=== PATIENT | male | born 1960 | race African-American/Black ===

== ENCOUNTER 2016-10-19 14:09 | Emergency (ER) | payer MEDICAID ==
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
[2016-10-19 14:40] LABS: ADD MORPH? NO; ADD SCAN? YES; FRAGMENT RBC FLAG 0 (0-99); HEMATOCRIT 46.7 % (40.0-51.0); HEMOGLOBIN 15.6 g/dL (13.7-17.5); LEFT SHIFT FLG 0 (0-99); LIPEMIA HEMOLYSIS FLAG 80 (0-99); MEAN CELL HEMOGLOBIN 28.6 pg (27.9-34.1); MEAN CELL HEMOGLOBIN CONCENTR. 33.4 g/dL (32.4-36.7); MEAN CELL VOLUME 85.5 fL (81.5-99.8); MEAN PLATELET VOLUME 10.8 fL (8.7-11.7); PLATELET CLUMPS FLAG 0 (0-99); PLATELET COUNT 235 10^3/uL (150-400); RED BLOOD CELL COUNT 5.46 10^6/uL (4.40-6.38); RED CELL DISTRIBUTION WIDTH 15.9 % (11.5-15.2)
[2016-10-19 14:49] LABS: ATYPICAL LYMPHOCYTE FLAG 150 (0-99)
[2016-10-19 14:50] LABS: ANION GAP 12 mEq/L (8-16); CALCIUM 9.2 mg/dL (8.5-10.4); CARBON DIOXIDE 23 mEq/l (22-31); CHLORIDE 106 mEq/L (97-110); CREATININE 0.7 mg/dL (0.7-1.3); ETHANOL SERUM < 10 mg/dL (0-10); GLOMERULAR FILTRATION RATE > 60; GLUCOSE 87 mg/dL (70-100); POTASSIUM 4.2 mEq/L (3.5-5.2); SODIUM 141 mEq/L (134-144)
[2016-10-19 15:10] VITALS: RESP 16; TEMP 97.9; O2SAT 96
[2016-10-19 15:11] LABS: ADD DIFF? YES; SCAN POSITIVE
[2016-10-19 15:19] LABS: GIANT PLATELETS PRESENT; PLATELET ESTIMATE ADEQUATE (ADEQ)
[2016-10-19] MEDS ORDERED: OLANZapine 5 MG TAB PO ONE (16:53)
[2016-10-19] MEDS ORDERED: OLANZapine DISINTEGR 5 MG TAB ONE (16:55)
[2016-10-19] MEDS ORDERED: HYDROCHLOROTHIAZIDE 25 MG TAB PO ONE (17:00)
[2016-10-19] MEDS ORDERED: risperiDONE 2 MG TAB PO SCH (21:00)
[2016-10-19] MEDS ORDERED: BENZTROPINE MESYLATE 1 MG TAB PO SCH (21:00)
[2016-10-19] MEDS ORDERED: QUEtiapine FUMARATE 300 MG TAB PO SCH (21:00)
[2016-10-19] MEDS ORDERED: risperiDONE 1 MG TAB PO SCH (21:00)
[2016-10-19] MEDS ORDERED: QUEtiapine FUMARATE 200 MG TAB PO SCH (21:00)
[2016-10-20 01:30] VITALS: PULSE 80
[2016-10-20 01:44] VITALS: BP 108/73
== END 2016-10-20 01:45 ==
LOC: EDUNIT#
DX: F22 Delusional disorders (principal); I10 Essential (primary) hypertension; F17.210 Nicotine dependence, cigarettes, uncomplicated; M79.674 Pain in right toe(s)
CPT/HCPCS: 80305; G0480

== ENCOUNTER 2016-10-31 15:33 | Emergency (ER) | payer MEDICAID ==
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
[2016-10-31] MEDS ORDERED: IBUPROFEN 600 MG TAB PO ONE (16:01)
[2016-10-31 16:55] VITALS: BP 150/68; PULSE 89; RESP 22; TEMP 97.5; O2SAT 96
== END 2016-10-31 16:55 | disposition home or self-care (01) ==
LOC: EDUNIT#
DX: S39.94XA Unspecified injury of external genitals, initial encounter (principal); J45.909 Unspecified asthma, uncomplicated; I10 Essential (primary) hypertension; F17.200 Nicotine dependence, unspecified, uncomplicated; W51.XXXA Accidental striking against or bumped into by another person, initial encounter

== ENCOUNTER 2016-11-11 09:14 | Emergency (ER) | payer MEDICAID, OTHER ==
[2016-11-11] MEDS ORDERED: NICOTINE 21 MG/24 HR PATCH TD ONE (09:40)
[2016-11-11] MEDS: NICOTINE POLACRILEX 2 MG GUM B PRN ×2 (10:09→11:29)
[2016-11-11 10:18] LABS: % IMMATURE GRANULYOCYTES 0.5 % (0.0-1.1); ABSOLUTE IMMATURE GRANULOCYTES 0.03 10^3/uL (0.00-0.10); ADD DIFF? NO; ADD MORPH? NO; ADD SCAN? YES; ATYPICAL LYMPHOCYTE FLAG 90 (0-99); FRAGMENT RBC FLAG 0 (0-99); HEMATOCRIT 46.9 % (40.0-51.0); HEMOGLOBIN 15.2 g/dL (13.7-17.5); LEFT SHIFT FLG 0 (0-99); LIPEMIA HEMOLYSIS FLAG 80 (0-99); MEAN CELL HEMOGLOBIN 28.3 pg (27.9-34.1); MEAN CELL HEMOGLOBIN CONCENTR. 32.4 g/dL (32.4-36.7); MEAN CELL VOLUME 87.3 fL (81.5-99.8); MEAN PLATELET VOLUME 10.8 fL (8.7-11.7); PLATELET COUNT 314 10^3/uL (150-400); RED BLOOD CELL COUNT 5.37 10^6/uL (4.40-6.38); RED CELL DISTRIBUTION WIDTH 17.2 % (11.5-15.2)
[2016-11-11 10:21] LABS: PLATELET CLUMPS FLAG 300 (0-99)
[2016-11-11 10:37] LABS: ALANINE AMINOTRANSFERASE 39 IU/L (21-72); ALBUMIN 3.9 g/dL (3.5-5.0); ALKALINE PHOSPHATASE 82 IU/L (38-126); ANION GAP 14 mEq/L (8-16); ASPARTATE AMINOTRANSFERASE 23 IU/L (17-59); BILIRUBIN,TOTAL 0.4 mg/dL (0.1-1.4); CALCIUM 9.1 mg/dL (8.5-10.4); CARBON DIOXIDE 21 mEq/l (22-31); CHLORIDE 106 mEq/L (97-110); CREATININE 0.7 mg/dL (0.7-1.3); GLOMERULAR FILTRATION RATE > 60; GLUCOSE 90 mg/dL (70-100); POTASSIUM 4.3 mEq/L (3.5-5.2); SODIUM 141 mEq/L (134-144); TOTAL PROTEIN 7.1 g/dL (6.3-8.2)
[2016-11-11 10:50] LABS: SCAN NEGATIVE
--- NOTE | 2016-11-11 11:02 | EDPHY ---
H & P Time Seen by Provider: 11/11/16 09:26 HPI/ROS: CHIEF COMPLAINT: Hearing voices, thoughts of persecution HISTORY OF PRESENT ILLNESS: Patient is a 56-year-old male who presents to the emergency department on a mental health hold. Patient has a history of uterine way. Patient states that he being persecuted by [employer]. He is "sick of it and going to start hurting people". He denies any self-harm. He denies drug use other than THC. Patient has no recent trauma or injuries. No headache , shortness of breath, chest pain, abdominal pain, nausea or vomiting. REVIEW OF SYSTEMS: My complete review of systems is negative except as mentioned in the HPI. Additionally, the patient reports that he is legally blind. Past Medical/Surgical History: Includes apparently, meth and cocaine abuse, glaucoma, hypertension, biceps tear , rotator cuff tear Social History: Patient denies alcohol. He reports using THC. Smoking Status: Current every day smoker Constitutional: Initial Vital Signs Temperature (C) 36.8 C 11/11/16 09:34 Heart Rate 72 11/11/16 09:34 Respiratory Rate 18 11/11/16 09:34 Blood Pressure 188/112 H 11/11/16 09:34 O2 Sat (%) 98 11/11/16 09:34 O2 Delivery Mode Room Air Allergies/Adverse Reactions: No Known Allergies Allergy (Unverified 05/29/16 20:34) Home Medications: Medication Instructions Recorded Meloxicam 10/31/16 Risperdal 10/31/16 Seroquel 10/31/16 Medical Decision Making ED Course/Re-evaluation: In the emergency department I reviewed the patient's mental health hold. Laboratory studies were ordered. 1105: Mental health angular js developer was contacted for evaluation. 1130: The patient felt the room next to him was trying to come into his room. The patient was having worsening delusions. I initially ordered a Zyprexa. The patient stated he would prefer Haldol. 1445: The patient is complaining of right rotator cuff discomfort. He requested Percocet. This was given orally. Differential Diagnosis: My differential includes but is not limited to schizophrenia, schizoaffective disorder, electrolyte abnormality, sugar abnormality, drug abuse, alcohol abuse , head injury - Data Points Laboratory Results: Laboratory Results 11/11/16 10:00 11/11/16 10:00 11/11/16 11/11/16 11/11/16 10:00 10:00 10:00 WBC 6.25 10^3/uL 10^3/uL (3.80-9.50) RBC 5.37 10^6/uL 10^6/uL (4.40-6.38) Hgb 15.2 g/dL g/dL (13.7-17.5) Hct 46.9 % % (40.0-51.0) MCV 87.3 fL fL (81.5-99.8) MCH 28.3 pg pg (27.9-34.1) MCHC 32.4 g/dL g/dL (32.4-36.7) RDW 17.2 % H % (11.5-15.2) Plt Count 314 10^3/uL 10^3/uL (150-400) MPV 10.8 fL fL (8.7-11.7) Neut % (Auto) 54.5 % % (39.3-74.2) Lymph % (Auto) 32.6 % % (15.0-45.0) [place] % (Auto) 8.6 % % (4.5-13.0) Eos % (Auto) 3.2 % % (0.6-7.6) Baso % (Auto) 0.6 % % (0.3-1.7) Nucleat RBC Rel Count 0.0 % % (0.0-0.2) Absolute Neuts (auto) 3.40 10^3/uL 10^3/uL (1.70-6.50) Absolute Lymphs (auto) 2.04 10^3/uL 10^3/uL (1.00-3.00) Absolute Monos (auto) 0.54 10^3/uL 10^3/uL (0.30-0.80) Absolute Eos (auto) 0.20 10^3/uL 10^3/uL (0.03-0.40) Absolute Basos (auto) 0.04 10^3/uL 10^3/uL (0.02-0.10) Absolute Nucleated RBC 0.00 10^3/uL 10^3/uL (0-0.01) Immature Gran % 0.5 % % (0.0-1.1) Immature Gran # 0.03 10^3/uL 10^3/uL (0.00-0.10) Sodium 141 mEq/L mEq/L (134-144) Potassium 4.3 mEq/L mEq/L (3.5-5.2) Chloride 106 mEq/L mEq/L (97-110) Carbon Dioxide 21 mEq/l L mEq/l (22-31) Anion Gap 14 mEq/L mEq/L (8-16) BUN 10 mg/dL mg/dL (7-23) Creatinine 0.7 mg/dL mg/dL (0.7-1.3) Estimated GFR > 60 Glucose 90 mg/dL mg/dL (70-100) Calcium 9.1 mg/dL mg/dL (8.5-10.4) Total Bilirubin 0.4 mg/dL mg/dL (0.1-1.4) AST 23 IU/L IU/L (17-59) ALT 39 IU/L IU/L (21-72) Alkaline Phosphatase 82 IU/L IU/L (38-126) Total Protein 7.1 g/dL g/dL (6.3-8.2) Albumin 3.9 g/dL g/dL (3.5-5.0) TSH 1.570 uIU/mL uIU/mL (0.465-4.680) Urine Opiates Screen Urine Barbiturates Ur Phencyclidine Scrn Ur Amphetamine Screen U Benzodiazepines Scrn Urine Cocaine Screen U Marijuana (THC) Screen 11/11/16 09:25 WBC RBC Hgb Hct MCV MCH MCHC RDW Plt Count MPV Neut % (Auto) Lymph % (Auto) [place] % (Auto) Eos % (Auto) Baso % (Auto) Nucleat RBC Rel Count Absolute Neuts (auto) Absolute Lymphs (auto) Absolute Monos (auto) Absolute Eos (auto) Absolute Basos (auto) Absolute Nucleated RBC Immature Gran % Immature Gran # Sodium Potassium Chloride Carbon Dioxide Anion Gap BUN Creatinine Estimated GFR Glucose Calcium Total Bilirubin AST ALT Alkaline Phosphatase Total Protein Albumin TSH Urine Opiates Screen NEGATIVE (NEGATIVE) Urine Barbiturates NEGATIVE (NEGATIVE) Ur Phencyclidine Scrn NEGATIVE (NEGATIVE) Ur Amphetamine Screen NEGATIVE (NEGATIVE) U Benzodiazepines Scrn NEGATIVE (NEGATIVE) Urine Cocaine Screen NEGATIVE (NEGATIVE) U Marijuana (THC) Screen NON-NEGATIVE H (NEGATIVE) Medications Given: Discontinued Medications Haloperidol (Haldol) 10 mg PO EDNOW ONE Stop: 11/11/16 11:33 Last Admin: 11/11/16 11:57 Dose: 10 mg Nicotine (Nicoderm Cq) 21 mg TD EDNOW ONE Stop: 11/11/16 09:41 Last Admin: 11/11/16 10:05 Dose: 21 mg Olanzapine (Zyprexa Zydis) 10 mg PO EDNOW ONE Stop: 11/11/16 11:27 Last Admin: 11/11/16 11:39 Dose: Not Given Departure - Departure Clinical Impression: Paranoia, Delusion Condition: Good Referrals: Patient,NotPresent [Unknown] - As per Instructions
[2016-11-11] MEDS ORDERED: OLANZapine DISINTEGR 10 MG TAB PO ONE (11:26)
[2016-11-11] MEDS ORDERED: HALOPERIDOL 10 MG TAB PO ONE ×2 (11:32→20:40)
[2016-11-11] MEDS ORDERED: OXYCODONE/APAP 5/325 TAB PO ONE (14:52)
[2016-11-12] MEDS ORDERED: IBUPROFEN 600 MG TAB PO ONE ×2 (00:20→00:22)
[2016-11-12] MEDS ORDERED: KETOROLAC 30 MG/1 ML SDV IM ONE (06:48)
[2016-11-12] MEDS ORDERED: LORazepam 1 MG TAB ONE (06:56)
[2016-11-12] MEDS ORDERED: LORazepam 1 MG TAB PO ONE (07:08)
[2016-11-12] MEDS ORDERED: OXYCODONE/APAP 5/325 TAB PO ONE ×2 (09:33→22:36)
[2016-11-12] MEDS ORDERED: NICOTINE 21 MG/24 HR PATCH TD ONE (22:36)
[2016-11-12] MEDS ORDERED: NICOTINE POLACRILEX 2 MG GUM B PRN (22:36)
[2016-11-13] MEDS ORDERED: HALOPERIDOL 10 MG TAB PO ONE (08:38)
[2016-11-13] MEDS ORDERED: OXYCODONE/APAP 5/325 TAB ONE (08:59)
[2016-11-13] MEDS ORDERED: IBUPROFEN 600 MG TAB PO ONE (15:21)
[2016-11-13] MEDS ORDERED: ACETAMINOPHEN 500 MG TAB ONE (15:57)
[2016-11-13] MEDS ORDERED: traMADol 50 MG TAB ONE (15:57)
[2016-11-13] MEDS: risperiDONE 2 MG TAB PO SCH (16:02)
[2016-11-13] MEDS: hydrOXYzine HCL 50 MG TAB PO PRN (16:03)
[2016-11-13] MEDS ORDERED: ACETAMINOPHEN 500 MG TAB PO ONE (16:06)
[2016-11-13] MEDS ORDERED: traMADol 50 MG TAB PO ONE (16:06)
[2016-11-13] MEDS ORDERED: QUEtiapine FUMARATE 100 MG TAB PO SCH (21:00)
[2016-11-13] MEDS ORDERED: BENZTROPINE MESYLATE 1 MG TAB PO ONE (21:00)
[2016-11-13] MEDS: QUEtiapine FUMARATE 200 MG TAB PO SCH (21:03)
[2016-11-14] MEDS: risperiDONE 2 MG TAB PO SCH ×2 (11:13→21:01)
[2016-11-14] MEDS ORDERED: ACETAMINOPHEN 500 MG TAB PO ONE ×2 (16:17→21:02)
[2016-11-14] MEDS ORDERED: OXYCODONE/APAP 5/325 TAB PO ONE (16:25)
[2016-11-14] MEDS: hydrOXYzine HCL 50 MG TAB PO PRN (16:53)
[2016-11-14] MEDS: QUEtiapine FUMARATE 200 MG TAB PO SCH (21:00)
[2016-11-14] MEDS ORDERED: BENZTROPINE MESYLATE 1 MG TAB PO ONE (21:03)
[2016-11-15] MEDS: risperiDONE 2 MG TAB PO SCH (10:11)
[2016-11-15 10:13] VITALS: RESP 18; TEMP 97.7; O2SAT 96
[2016-11-15] MEDS ORDERED: OXYCODONE/APAP 5/325 TAB PO ONE (11:06)
[2016-11-15] MEDS: hydrOXYzine HCL 50 MG TAB PO PRN (11:38)
[2016-11-15 15:34] VITALS: BP 148/70; PULSE 69
== END 2016-11-15 15:31 ==
LOC: EDUNIT#
DX: F29 Unspecified psychosis not due to a substance or known physiological condition (principal)
CPT/HCPCS: 80305; J1885

== ENCOUNTER 2016-11-15 15:40 | Inpatient (IN) | payer OTHER ==
[2016-11-15] MEDS ORDERED: MAG HYDROX/AL HYDROX/SIMETH 30 ML UDCUP PO PRN (17:43)
[2016-11-15] MEDS ORDERED: ACETAMINOPHEN 325 MG TAB PO PRN (17:43)
[2016-11-15] MEDS ORDERED: MAGNESIUM HYDROXIDE 30 ML UDCUP PO PRN (17:43)
[2016-11-15] MEDS ORDERED: NICOTINE POLACRILEX 2 MG GUM B PRN (17:43)
[2016-11-15] MEDS ORDERED: LORazepam 0.5 MG TAB PO PRN (17:43)
[2016-11-16] MEDS ORDERED: NON-FORMULARY NEW DRUG (Hydroxyzine Pamoate [Vistaril] 50 MG) PO PRN (06:57)
[2016-11-16] MEDS: hydrOXYzine HCL 50 MG TAB PO PRN (08:59)
[2016-11-16] MEDS: HYDROCHLOROTHIAZIDE 25 MG TAB PO SCH (08:59)
[2016-11-16] MEDS: risperiDONE 2 MG TAB PO SCH ×2 (08:59→20:48)
[2016-11-16] MEDS ORDERED: RISPERIDONE 4 MG PO SCH (09:00)
[2016-11-16] MEDS: OXYCODONE/APAP 5/325 TAB PO PRN ×3 (11:26→20:54)
--- NOTE | 2016-11-16 14:52 | BCON ---
[f rep st] BEHAVIORAL HEALTH CONSULTATION DATE OF CONSULTATION: 11/16/2016 REFERRING PHYSICIAN: Marcos Clement MD REASON FOR REFERRAL: Medical clearance for inpatient behavioral health stay. HISTORY OF PRESENT ILLNESS: The patient came to the emergency department on mental health hold. He had delusions of persecution, and was threatening to hurt other people. He spent several days on hold at the emergency department, and was eventually transferred to inpatient rehabilitation for further psychiatric care. He currently complains of right shoulder pain. Otherwise, he is without acute complaint. PAST MEDICAL HISTORY: 1. Schizoaffective disorder. 2. History of a right rotator cuff tear and biceps tendon tear. 3. Hypertension. 4. Retinitis pigmentosa, and he reports that he is legally blind. 5. Glaucoma. 6. Polysubstance abuse. PAST SURGICAL HISTORY: He has not had a history of surgeries. ALLERGIES: There are no known drug allergies. SOCIAL HISTORY: He is homeless. He reports that he has a bachelor's degree in Home [employer], but has not used it. He is a heavy tobacco smoker and uses marijuana. He denies any other people in his life, including no children and no partner. FAMILY HISTORY: Noncontributory. REVIEW OF SYSTEMS: He reports weight loss. He says his usual weight is 135 pounds, and on the unit he has been weighed at 57 kg, or approximately 125 pounds. He reports a cough, which is chronic. He has had a change in the color of his sputum from white to yellow/brown. He denies dyspnea, but he feels like he has been wheezing. He denies fevers or chills. He reports that his teeth are falling out, and has not had dental care. He reports some diarrhea. He has had weight loss, but his appetite has improved since he has been at the hospital. He denies urinary frequency or dysuria. He denies joint swelling or pain, other than his right shoulder. He denies skin rash or skin breakdown. Otherwise, a 10-point review of systems is negative. PHYSICAL EXAM: VITAL SIGNS: Blood pressure is 181/86, that was this morning prior to medication; heart rate was 54; respiratory rate was 16; oxygen saturation was 97% on room air; temperature was 36.4 degrees centigrade. His weight was 56.7 kg, for a body mass index of 20.2. GENERAL: This is a fatigued -appearing man, appears his chronologic age, cooperative, and in no acute distress. HEENT: Extraocular movements are intact. Pupils are unequal, with the right pupil being larger, but are round and reactive to light. Mucous membranes are moist. Dentition is in poor condition, and there is halitosis. NECK: Supple. HEART: There is an irregular rhythm. There are no murmurs, rubs, or gallops auscultated. LUNGS: There is reduced air movement, but there are no wheezes, rhonchi, or rales auscultated. ABDOMEN: Soft, nontender, nondistended, with normoactive bowel sounds. EXTREMITIES: There is no cyanosis , clubbing, or edema. He has muscle wasting of the right deltoid and biceps. NEUROLOGIC: He is alert and oriented x3. He appears fatigued. Cranial nerves 2 through 12 are grossly intact. There is no focal weakness other than the right shoulder. Gait is within normal limits, though reduced arm swing on the right. LABORATORY STUDIES: Drawn in the emergency department, CBC was overall within normal limits. He had an increased RDW at 17.2, likely of no clinical significance. Serum chemistry revealed a slightly low carbon dioxide of 21. Otherwise, renal function, electrolytes, and liver functions were within normal limits. TSH was normal at 1.57. Toxicology in the urine was non-negative for marijuana, and was otherwise negative for substances of abuse. ASSESSMENT AND RECOMMENDATIONS: 1. Mental health issues. Pending further evaluation and management per Psychiatry the Mental Health Team. 2. Irregular heart rhythm. EKG reviewed by myself shows premature atrial complexes. Consider cardiology referral after discharge to rule out structural heart disease. Otherwise no specific evaluation or management is indicated at present. 3. Hypertension. It is likely given the elevation of his blood pressure that a single agent will not be sufficient to achieve control. I have added amlodipine 5 mg daily, and will follow along to ensure appropriate blood pressure control. 4. Cough, chronic. Possible chronic obstructive pulmonary disease, with change in sputum color. He, however, does not have dyspnea, and lung exam is otherwise benign. He has not had fevers. Will observe for now. 5. Tobacco dependence syndrome. Advised smoking cessation. 6. Chronic right shoulder pain. He reports that he was scheduled to have an MRI. He can follow up after his discharge with further imaging and possible surgical intervention. 7. Weight loss with improved appetite. Normal TSH. Would observe his oral intake, and if he continues to lose weight despite psychosocial stabilization, further evaluation would be appropriate, including age-appropriate cancer screening. 8. Poor dentition. Perhaps through working with Case Management, dental care can be arranged for Mr. walker. 9. Homeless status. Perhaps through work with Case Management, he can find a stable place to live. I see no medical contraindications to the patient's continued stay on the inpatient behavioral health unit or to any psychiatric medications or procedures. Thank you very much for including me in the care of the patient, and please do not hesitate to contact me or the hospitalist service should there be need for further medical evaluation. /[id number]/MODL MTDD
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
[2016-11-16] MEDS: amLODIPine BESYLATE 5 MG TAB PO SCH (16:12)
--- NOTE | 2016-11-16 16:50 | CPEKG ---
Heart Rate: 65 RR Interval: 923 P-R Interval: 128 QRSD Interval: 90 QT Interval: 452 QTC Interval: 470 P Dundee: 75 QRS Dundee: 62 T Wave Dundee: 70 EKG Severity - ABNORMAL ECG - EKG Impression: SINUS RHYTHM EKG Impression: ATRIAL PREMATURE COMPLEX EKG Impression: SINUS PAUSE/ARREST WITH ATRIAL ESCAPE Electronically Signed By: Avery Gaitan 16-Nov-2016 18:08:59
[2016-11-16] MEDS: QUEtiapine FUMARATE 200 MG TAB PO SCH (20:48)
[2016-11-16] MEDS: BENZTROPINE MESYLATE 2 MG TAB PO SCH (20:49)
[2016-11-16] MEDS ORDERED: QUETIAPINE FUMARATE 400 MG PO SCH (21:00)
[2016-11-17] MEDS: risperiDONE 2 MG TAB PO SCH ×2 (08:44→21:02)
[2016-11-17] MEDS: HYDROCHLOROTHIAZIDE 25 MG TAB PO SCH (08:44)
[2016-11-17] MEDS: amLODIPine BESYLATE 5 MG TAB PO SCH (08:45)
[2016-11-17] MEDS: OXYCODONE/APAP 5/325 TAB PO PRN ×3 (08:47→21:09)
--- NOTE | 2016-11-17 14:35 | SOAPPROG ---
SOAP Progress Note Assessment/Plan: Assessment: Plan: 11/17/16 14:34 Improved. Will CCM. Continue active d/c planning. Subjective: Pt seen, discussed with staff. Calmer yesterday with no behavioral issues. States today that he believes the meds are helping. Slept well. No c/o's. Objective: Vital Signs Temp Pulse Resp BP Pulse Ox 36.5 C 54 L 15 129/73 H 95 11/17/16 06:00 11/17/16 06:00 11/17/16 06:00 11/17/16 08:45 11/17/16 06:00 MSE: Calm, coop. Affect is brighter, less hostile. States, "I'm always in a better mood in the mornings." TP linear. TC reveals no psychosis. SI persists , but "better." - Time Spent With Patient Time Spent With Patient: 15" - Pending Discharge Pending Discharge Within 24 Hours: No ICD10 Worksheet Patient Problems: Problems Problem Status Onset Schizophrenia, chronic with acute exacerbation Acute - ICD10 Problem Qualifiers (1) Schizophrenia, chronic with acute exacerbation
[2016-11-17] MEDS: hydrOXYzine HCL 50 MG TAB PO PRN (16:14)
[2016-11-17] MEDS: ALBUTEROL 60 PUFFS/8 GM MDI IH PRN (21:01)
[2016-11-17] MEDS: BENZTROPINE MESYLATE 2 MG TAB PO SCH (21:03)
[2016-11-17] MEDS: QUEtiapine FUMARATE 200 MG TAB PO SCH (21:04)
[2016-11-18] MEDS: risperiDONE 2 MG TAB PO SCH ×2 (09:39→20:49)
[2016-11-18] MEDS: HYDROCHLOROTHIAZIDE 25 MG TAB PO SCH (09:39)
[2016-11-18] MEDS: OXYCODONE/APAP 5/325 TAB PO PRN ×3 (09:39→20:48)
[2016-11-18] MEDS: amLODIPine BESYLATE 5 MG TAB PO SCH (09:40)
[2016-11-18] MEDS: hydrOXYzine HCL 50 MG TAB PO PRN (16:07)
[2016-11-18] MEDS: BENZTROPINE MESYLATE 2 MG TAB PO SCH (20:48)
[2016-11-18] MEDS: QUEtiapine FUMARATE 200 MG TAB PO SCH (20:48)
[2016-11-18] MEDS: ALBUTEROL 60 PUFFS/8 GM MDI IH PRN (20:59)
[2016-11-19] MEDS: risperiDONE 2 MG TAB PO SCH ×2 (09:02→20:35)
[2016-11-19] MEDS: HYDROCHLOROTHIAZIDE 25 MG TAB PO SCH (09:03)
[2016-11-19] MEDS: amLODIPine BESYLATE 5 MG TAB PO SCH (09:03)
[2016-11-19] MEDS: ALBUTEROL 60 PUFFS/8 GM MDI IH PRN (09:05)
[2016-11-19] MEDS: OXYCODONE/APAP 5/325 TAB PO PRN ×2 (09:16→20:35)
[2016-11-19] MEDS: OLANZapine DISINTEGR 10 MG TAB PO PRN (09:17)
[2016-11-19] MEDS: hydrOXYzine HCL 50 MG TAB PO PRN (09:17)
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
[2016-11-19] MEDS: BENZTROPINE MESYLATE 2 MG TAB PO SCH (20:34)
[2016-11-19] MEDS: QUEtiapine FUMARATE 200 MG TAB PO SCH (20:35)
[2016-11-20] MEDS: amLODIPine BESYLATE 5 MG TAB PO SCH (08:29)
[2016-11-20] MEDS: HYDROCHLOROTHIAZIDE 25 MG TAB PO SCH (08:30)
[2016-11-20] MEDS: hydrOXYzine HCL 50 MG TAB PO PRN (08:30)
[2016-11-20] MEDS: OLANZapine DISINTEGR 10 MG TAB PO PRN (08:30)
[2016-11-20] MEDS: ALBUTEROL 60 PUFFS/8 GM MDI IH PRN (08:31)
[2016-11-20] MEDS: OXYCODONE/APAP 5/325 TAB PO PRN ×2 (08:31→21:32)
--- NOTE | 2016-11-20 09:58 | SOAPPROG ---
SOAP Progress Note Assessment/Plan: Assessment: Plan: 11/17/16 14:34 Improved. Will CCM. Continue active d/c planning. 11/20/16 09:57 Stabilizing. CCM. Likely d/c on Monday. Subjective: LATE ENTRY FOR 11/18/16. Pt seen, discussed with staff. Remains calm and coop. Affect is brighter, less irritable. Compliant with meds. Sleeping and eating well. Focused on getting his glasses replaced. Aware of all the necessary steps to accomplish this. Objective: Vital Signs Temp Pulse Resp BP Pulse Ox 36.7 C 63 14 125/68 H 97 11/20/16 06:00 11/20/16 06:00 11/20/16 06:00 11/20/16 08:30 11/20/16 06:00 MSE: Calm, coop., though somewhat guarded. Affect is blunted, stable, approp. Mood is "pretty good." TP linear. TC reveals no current report of paranoia or AH's. Denies current SI to me. - Time Spent With Patient Time Spent With Patient: 15" - Pending Discharge Pending Discharge Within 24 Hours: No Pending Discharge Within 48 Hours: No ICD10 Worksheet Patient Problems: Problems Problem Status Onset Schizophrenia, chronic with acute exacerbation Acute - ICD10 Problem Qualifiers (1) Schizophrenia, chronic with acute exacerbation
[2016-11-20] MEDS: risperiDONE 2 MG TAB PO SCH ×2 (11:00→21:28)
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
[2016-11-20] MEDS: QUEtiapine FUMARATE 200 MG TAB PO SCH (21:28)
[2016-11-20] MEDS: BENZTROPINE MESYLATE 2 MG TAB PO SCH (21:28)
[2016-11-21 06:20] VITALS: BP 125/76; RESP 12
[2016-11-21] MEDS: HYDROCHLOROTHIAZIDE 25 MG TAB PO SCH (08:34)
[2016-11-21] MEDS: OXYCODONE/APAP 5/325 TAB PO PRN ×2 (08:34→20:48)
[2016-11-21] MEDS: risperiDONE 2 MG TAB PO SCH ×2 (08:34→20:41)
[2016-11-21] MEDS: amLODIPine BESYLATE 5 MG TAB PO SCH (08:34)
--- NOTE | 2016-11-21 14:55 | SOAPPROG ---
SOAP Progress Note Assessment/Plan: Assessment:Patient is pleasant and cooperative. He reports continued symptoms of a mood and psychosis- unclear if psychosis related to crack cocaine and methamphetamine abuse. He has struggled with crack cocaine since 1984. He has had limited substance abuse treatment, no really treatment since the . He was treated at [facility] from [id number]. He was in ad-seg most of the time he spent in general population. Depression - is improving No SI/HI. He is getting up more. Plan: Continue medications except he does not need Trazodone with Seroquel on board. Encourage out of bed to groups. Referral to medical clinic for outpatient MRI and PT as warranted. Disposition- Homeless with follow-up [facility]. Recommend he reach out to a 12 step program. Remote possibility of [facility]. [facility] is probably his best hope of remaining sober and redeeming whatever life he still has left. 11/19/16 15:32 11/19/16 15:41 11/19/16 15:47 11/20/16 12:58 11/20/16 13:01 11/20/16 13:04 11/21/16 14:42 Subjective: He reports he is not doing well Objective: Vital Signs Temp Pulse Resp BP Pulse Ox 36.9 C 88 12 125/76 H 95 11/21/16 06:00 11/21/16 06:00 11/21/16 06:00 11/21/16 08:34 11/21/16 06:00 ICD10 Worksheet Patient Problems: Problems Problem Status Onset Schizophrenia, chronic with acute exacerbation Acute
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
[2016-11-21] MEDS: BENZTROPINE MESYLATE 2 MG TAB PO SCH (20:41)
[2016-11-21] MEDS: QUEtiapine FUMARATE 200 MG TAB PO SCH (20:42)
[2016-11-22 06:25] VITALS: PULSE 64; TEMP 97.7; O2SAT 96
[2016-11-22] MEDS: risperiDONE 2 MG TAB PO SCH (09:12)
[2016-11-22] MEDS: amLODIPine BESYLATE 5 MG TAB PO SCH (09:12)
[2016-11-22] MEDS: HYDROCHLOROTHIAZIDE 25 MG TAB PO SCH (09:15)
[2016-11-22] MEDS: OXYCODONE/APAP 5/325 TAB PO PRN (09:25)
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
== END 2016-11-22 09:38 | disposition home or self-care (01) | DRG 885 ==
LOC: BBEH 15:40
PROVIDERS: ADMIT Psychiatry & Neurology Psychiatry; ATTEND Psychiatry & Neurology Psychiatry
DX: F20.0 Paranoid schizophrenia (principal); R05 Cough; I10 Essential (primary) hypertension; F15.20 Other stimulant dependence, uncomplicated; F19.20 Other psychoactive substance dependence, uncomplicated; F17.210 Nicotine dependence, cigarettes, uncomplicated; Z59.0 Homelessness

== ENCOUNTER 2018-06-08 16:28 | Emergency (ER) | payer MEDICAID, OTHER ==
--- NOTE | 2018-06-08 16:34 | EDPHY ---
H & P Smoking Status: Heavy smoker Time Seen by Provider: 06/08/18 16:31 HPI/ROS: CHIEF COMPLAINT: "My mental diseases taking control" HISTORY OF PRESENT ILLNESS: The patient is a 58-year-old male with a history of bipolar disorder and reported schizophrenia who presents emergency department hearing voices. The voices are telling him to hurt other people. He reports that he wants to become violent. He has no suicidal ideation. He reports using methamphetamine 8 days ago. He uses marijuana. No alcohol abuse. Patient is feeling anxious. He has general pain. REVIEW OF SYSTEMS: 10 systems were reveiwed and are negative with the exception of the elements mentioned in the history of present illness. (Vivian Roberts) Past Medical/Surgical History: Includes anxiety, bipolar disorder, psychosis, PTSD Social history: Patient smokes THC and uses methamphetamine (Vivian Roberts) Physical Exam: Vitals noted GENERAL: No acute distress, alert. HEENT: Eyes normal to inspection, normal pharynx, no signs of dehydration. NECK: Normal, supple. RESPIRATORY: Clear to auscultation bilaterally, no rales, rhonchi or wheezing. CVS: Regular rate and rhythm, no rubs, murmurs, or gallops. ABDOMEN: Soft, nontender, nondistended, no organomegaly. BACK: Normal to inspection, no CVA tenderness. SKIN: Normal color, no rash, warm, dry. No pallor. EXTREMITIES: No pedal edema, no calf tenderness, no Homans sign or cords, no joint swelling. NEURO/PSYCH: Alert and oriented, normal mood and affect, normal motor sensory exam. No obvious cranial nerve deficit. (Vivian Roberts) Constitutional: Initial Vital Signs Temperature (C) 36.7 C 06/08/18 16:38 Heart Rate 102 H 06/08/18 16:38 Respiratory Rate 14 06/08/18 16:38 Blood Pressure 131/98 H 06/08/18 16:38 O2 Sat (%) 98 06/08/18 16:38 O2 Delivery Mode Room Air Allergies/Adverse Reactions: No Known Allergies Allergy (Unverified 05/29/16 20:34) Home Medications: Medication Instructions Recorded Hydroxyzine Pamoate [Vistaril] 50 mg PO BID PRN 11/15/16 Quetiapine Fumarate [Seroquel] 400 mg PO HS #30 tablet 11/22/16 amLODIPine BESYLATE [Norvasc 5 mg 5 mg PO DAILY #30 tab 11/22/16 (*)] Benztropine Mesylate [Cogentin (*)] 2 mg PO HS 06/08/18 Hydrochlorothiazide [HCTZ (*)] 25 mg PO DAILY 06/08/18 Lidocaine [Lidoderm] 2 each TP DAILY 06/08/18 Meloxicam 15 mg PO DAILY 06/08/18 risperiDONE [Risperdal] 4 mg PO BID 06/08/18 traZODone [traZODONE 100MG (*)] 100 mg PO HS 06/08/18 Medical Decision Making ED Course/Re-evaluation: In the emergency department I met the patient on arrival. I took report from EMS. I reviewed the patient's mental health hold. I informed the patient of the hold and that he will be evaluated by the emergency department and psychiatric Services. He agreed with the plan. He consented to laboratory studies. CBC and chemistry unremarkable. Tox screen was positive for THC. Aspirin and Tylenol were negative. On recheck the patient was stable. He is awaiting psychiatric evaluation. 2300: Patient is signed out to Dr. Stinson at change of shift. Patient is awaiting psychiatric evaluation (Vivian Roberts) 2340: Patient accepted at [facility]. Dr. Todd. EMTALA filled out. Appropriate Transfer will be set up. (Santosh Stinson) Differential Diagnosis: My differential includes but is not limited to bipolar disorder, psychosis, methamphetamine abuse, alcohol abuse, electrolyte abnormality, sugar abnormality , mass, malignancy (Vivian Roberts) - Data Points Laboratory Results: Laboratory Results 06/08/18 17:01 06/08/18 17:01 06/08/18 06/08/18 06/08/18 17:01 17:01 17:01 WBC 5.57 10^3/uL 10^3/uL (3.80-9.50) RBC 5.32 10^6/uL 10^6/uL (4.40-6.38) Hgb 14.7 g/dL g/dL (13.7-17.5) Hct 44.5 % % (40.0-51.0) MCV 83.6 fL fL (81.5-99.8) MCH 27.6 pg L pg (27.9-34.1) MCHC 33.0 g/dL g/dL (32.4-36.7) RDW 15.5 % H % (11.5-15.2) Plt Count 240 10^3/uL 10^3/uL (150-400) MPV 11.3 fL fL (8.7-11.7) Neut % (Auto) 40.6 % % (39.3-74.2) Lymph % (Auto) 42.7 % % (15.0-45.0) [place] % (Auto) 8.4 % % (4.5-13.0) Eos % (Auto) 6.8 % % (0.6-7.6) Baso % (Auto) 1.3 % % (0.3-1.7) Nucleat RBC Rel Count 0.0 % % (0.0-0.2) Absolute Neuts (auto) 2.26 10^3/uL 10^3/uL (1.70-6.50) Absolute Lymphs (auto) 2.38 10^3/uL 10^3/uL (1.00-3.00) Absolute Monos (auto) 0.47 10^3/uL 10^3/uL (0.30-0.80) Absolute Eos (auto) 0.38 10^3/uL 10^3/uL (0.03-0.40) Absolute Basos (auto) 0.07 10^3/uL 10^3/uL (0.02-0.10) Absolute Nucleated RBC 0.00 10^3/uL 10^3/uL (0-0.01) Immature Gran % 0.2 % % (0.0-1.1) Immature Gran # 0.01 10^3/uL 10^3/uL (0.00-0.10) Sodium 140 mEq/L mEq/L (135-145) Potassium 4.4 mEq/L mEq/L (3.3-5.0) Chloride 106 mEq/L mEq/L (97-110) Carbon Dioxide 27 mEq/l mEq/l (22-31) Anion Gap 7 mEq/L mEq/L (6-14) BUN 14 mg/dL mg/dL (7-23) Creatinine 0.8 mg/dL mg/dL (0.7-1.3) Estimated GFR > 60 Glucose 93 mg/dL mg/dL (70-100) Calcium 9.7 mg/dL mg/dL (8.5-10.4) Salicylates < 1.0 mg/dL L mg/dL (2.0-20.0) Urine Opiates Screen NEGATIVE (NEGATIVE) Acetaminophen < 10 mcg/mL L mcg/mL (10-30) Urine Barbiturates NEGATIVE (NEGATIVE) Ur Phencyclidine Scrn NEGATIVE (NEGATIVE) Ur Amphetamine Screen NEGATIVE (NEGATIVE) U Benzodiazepines Scrn NEGATIVE (NEGATIVE) Urine Cocaine Screen NEGATIVE (NEGATIVE) U Marijuana (THC) Screen NON-NEGATIVE H (NEGATIVE) Ethyl Alcohol < 10 mg/dL mg/dL (0-10) Medications Given: Benztropine Mesylate (Cogentin) 2 mg PO HS [facility] Stop: 12/05/18 20:59 Last Admin: 06/08/18 21:08 Dose: 2 mg Miscellaneous Medication (Icy Hot Lidocaine/Menthol 4%/1% Patch) 2 patch TD DAILY SOM Stop: 12/05/18 20:59 Last Admin: 06/08/18 21:12 Dose: 2 patch Quetiapine Fumarate (Seroquel) 400 mg PO HS SOM Stop: 12/05/18 20:59 Last Admin: 06/08/18 21:10 Dose: 200 mg Risperidone (Risperdal) 4 mg PO BID SOM Stop: 12/05/18 20:59 Last Admin: 06/08/18 21:09 Dose: 4 mg Trazodone HCl (Trazodone) 100 mg PO HS [facility] Stop: 12/05/18 20:59 Last Admin: 06/08/18 21:09 Dose: 100 mg Departure - Departure Disposition: Other Psych, Not [place] Clinical Impression: Psychosis Qualifiers: Psychosis type: other Qualified Code(s): F28 - Other psychotic disorder not due to a substance or known physiological condition Condition: Good Referrals: Patient,NotPresent [Unknown] - As per Instructions
[2018-06-08 17:17] LABS: PLATELET COUNT 240 10^3/uL (150-400)
[2018-06-08] MEDS ORDERED: NON-FORMULARY NEW DRUG (Hydroxyzine Pamoate [Vistaril] 50 MG) PO PRN (20:50)
[2018-06-08] MEDS ORDERED: traZODone 100 MG TAB PO SCH (21:00)
[2018-06-08] MEDS ORDERED: BENZTROPINE MESYLATE 2 MG TAB PO SCH (21:00)
[2018-06-08] MEDS ORDERED: QUEtiapine FUMARATE 200 MG TAB PO SCH (21:00)
[2018-06-08] MEDS ORDERED: QUETIAPINE FUMARATE 400 MG PO SCH (21:00)
[2018-06-08] MEDS ORDERED: PATCH REMOVAL 1 EA PATCH TD SCH (21:00)
[2018-06-08] MEDS ORDERED: hydrOXYzine HCL 50 MG TAB PO PRN (21:00)
[2018-06-08] MEDS ORDERED: risperiDONE 2 MG TAB PO SCH (21:00)
[2018-06-08] MEDS ORDERED: LIDOCAINE 4%/MENTHOL 1% PATCH TD SCH (21:00)
[2018-06-09] MEDS ORDERED: OLANZapine DISINTEGR 10 MG TAB PO ONE (01:45)
[2018-06-09 03:34] VITALS: BP 133/74
[2018-06-09] MEDS ORDERED: HYDROCHLOROTHIAZIDE 25 MG TAB PO SCH (09:00)
[2018-06-09] MEDS ORDERED: amLODIPine BESYLATE 5 MG TAB PO SCH (09:00)
== END 2018-06-09 03:33 ==
LOC: EDUNIT#
DX: F29 Unspecified psychosis not due to a substance or known physiological condition (principal); F28 Other psychotic disorder not due to a substance or known physiological condition; F31.9 Bipolar disorder, unspecified; F41.9 Anxiety disorder, unspecified; F43.10 Post-traumatic stress disorder, unspecified; F17.200 Nicotine dependence, unspecified, uncomplicated; Z59.0 Homelessness
CPT/HCPCS: 80305; G0480